=== PATIENT | female | born 1985 | race Asian ===

== ENCOUNTER 2017-09-17 07:44 | Inpatient (IN) | payer OTHER ==
[2017-09-17] MEDS ORDERED: Dinoprostone* 10 MG VAG.SUPP VAGINAL ONE (08:30)
[2017-09-17 21:23] LABS: ABS Basophils 0 10^3/ul (0-0.2); ABS Eosinophils 0.1 10^3/ul (0-0.6); ABS Lymphocytes 2.3 10^3/ul (1.0-4.8); ABS Monocytes 0.9 10^3/ul (0-0.8); ABS Nucleated RBC 0 10^3/ul; Eosinophil % 0.5 % (0-6); Hematocrit 40 % (35-47); Hemoglobin 13.8 g/dl (12.0-16.0); Lymphocyte % 17.1 % (25-47); Mean Corpuscular HGB Conc 34 g/dl (31-36); Mean Corpuscular Hemoglobin 32 pg (27-31); Mean Corpuscular Volume 93 fL (80-97); Mean Platelet Volume 9 um3 (7.4-10.4); Nucleated Red Blood Cells % 0; Platelet Count 181 10^3/ul (150-450); Red Blood Count 4.35 10^6/ul (4.0-5.4); Red Cell Distribution Width 13 % (10.5-15); White Blood Count 13.3 10^3/ul (3.5-10.8)
[2017-09-17] MEDS ORDERED: OBEPIDURAL* 250 ML EPIDURAL ONE (22:01)
[2017-09-17] MEDS ORDERED: Famotidine TAB* 20 MG PO PRN (22:43)
[2017-09-17] MEDS ORDERED: Phenylephrine IV* 40 MCG/ML 10 ML SYRINGE IV PUSH PRN ×2 (22:43)
[2017-09-17] MEDS ORDERED: Sodium Citrate/Citric Acid* 15 ML UDC PO PRN (22:43)
[2017-09-17] MEDS ORDERED: EPHEDrine (Pressors)* 50 MG/ML VIAL IV PUSH PRN ×2 (22:43)
[2017-09-17] MEDS ORDERED: OBEPIDURAL* 250 ML EPIDURAL SCH (23:00)
[2017-09-18] MEDS ORDERED: Oxytocin in LR* 20 UNITS/1,000 ML BAG IVPB ONE (05:16)
[2017-09-18] MEDS ORDERED: Acetaminophen TAB* 325 MG PO PRN (06:41)
[2017-09-18] MEDS ORDERED: Glycerin ADULT SUPP PR PRN (06:41)
[2017-09-18] MEDS ORDERED: Witch Hazel PAD* JAR TOPICAL PRN (06:41)
[2017-09-18] MEDS ORDERED: Dibucaine 1% 28.35 GM TUBE PR PRN (06:41)
[2017-09-18] MEDS ORDERED: Oxytocin in LR* 20 UNITS/1,000 ML BAG IVPB SCH (07:00)
[2017-09-18] MEDS: Docusate CAP* 100 MG PO SCH ×3 (14:40→19:52)
[2017-09-18] MEDS: Ibuprofen TAB* 600 MG PO PRN (19:33)
[2017-09-19 06:44] LABS: ABS Basophils 0 10^3/ul (0-0.2); ABS Eosinophils 0.1 10^3/ul (0-0.6); ABS Lymphocytes 2.3 10^3/ul (1.0-4.8); ABS Neutrophils 11.1 10^3/ul (1.5-7.7); ABS Nucleated RBC 0 10^3/ul; Eosinophil % 0.7 % (0-6); Hematocrit 33 % (35-47); Hemoglobin 11.6 g/dl (12.0-16.0); Lymphocyte % 15.8 % (25-47); Mean Corpuscular HGB Conc 35 g/dl (31-36); Mean Corpuscular Hemoglobin 32 pg (27-31); Mean Corpuscular Volume 93 fL (80-97); Mean Platelet Volume 9 um3 (7.4-10.4); Nucleated Red Blood Cells % 0; Platelet Count 154 10^3/ul (150-450); Red Blood Count 3.58 10^6/ul (4.0-5.4); Red Cell Distribution Width 13 % (10.5-15); White Blood Count 14.5 10^3/ul (3.5-10.8)
[2017-09-19] MEDS ORDERED: Ferrous Gluconate TAB* 324 MG TAB PO SCH (09:00)
[2017-09-19] MEDS: Docusate CAP* 100 MG PO SCH ×3 (09:21→20:05)
[2017-09-19] MEDS: Ibuprofen TAB* 600 MG PO PRN ×2 (09:21→20:05)
[2017-09-19] MEDS: Simethicone TAB* 80 MG TAB.CHEW PO SCH ×2 (12:51→12:52)
[2017-09-20 07:23] VITALS: BP 111/64
[2017-09-20] MEDS: Ibuprofen TAB* 600 MG PO PRN (08:59)
[2017-09-20] MEDS: Docusate CAP* 100 MG PO SCH (08:59)
== END 2017-09-20 15:10 | disposition home or self-care (01) | DRG 775 ==
LOC: MCHOBOUT 07:44 → MCHOB 08:25
PROVIDERS: ADMIT Obstetrics & Gynecology; ATTEND Obstetrics & Gynecology
PROC: 10E0XZZ Delivery of Products of Conception, External Approach (ICD-10-PCS; principal; 2017-09-18)
PROC: 0KQM0ZZ Repair Perineum Muscle, Open Approach (ICD-10-PCS; 2017-09-18)
PROC: 3E033VJ Introduction of Other Hormone into Peripheral Vein, Percutaneous Approach (ICD-10-PCS; 2017-09-18)
DX: O48.0 Post-term pregnancy (principal); O69.81X0 Labor and delivery complicated by cord around neck, without compression, not applicable or unspecified; O70.1 Second degree perineal laceration during delivery; O77.0 Labor and delivery complicated by meconium in amniotic fluid; Z37.0 Single live birth; Z3A.41 41 weeks gestation of pregnancy
CPT/HCPCS: 36415; 85025; 86850; 86900; 86901; A9270-GY

== ENCOUNTER 2019-10-12 14:31 | Inpatient (IN) | payer OTHER, MEDICAID ==
[2019-10-12] MEDS ORDERED: Lactated Ringers 1000 ML Bag* 1,000 ML IV ONE ×2 (16:22→23:32)
[2019-10-12] MEDS ORDERED: Buffered Lidocaine 1% SYRIN* 1 ML/SYRINGE INTRADERM ONE (16:22)
--- NOTE | 2019-10-12 16:47 | HP ---
General Information - Reason for Visit Term for elective induction of labor - General Information Maternal Age: 34 Grav: 3 Para: 1 SAB: 1 IEA: 0 Estimated Due Date: 10/16/19 Determined By: Early Ultrasound Maternal Blood Type and Rh: A Positive - Results this Serology/RPR Result: Non-Reactive Rubella Result: Immune HBsAg Result: Negative HIV Result: Negative GBS Culture Result: Negative Past Medical History Delivery History: See Records - 09/2017 Pertinent Past Medical History: See Records - No current problems Pertinent Past Surgical History: See Records Past Surgical History Comment: Appendectomy 05/2016 Pertinent Family History: Non-Contributory - Antepartal Records Antepartal Records: Reviewed, Uncomplicated Review of Systems Constitutional: Comfortable CV Complaint: No Respiratory: Shortness of Breath: No Gastrointestinal: No Nausea/Vomiting, Constipation Genitourinary: No Dysuria, No Bleeding, No Leaking Fluid Musculoskeletal: No Complaint Neurological: No Headache, No Visual Changes Movement: Normal Exam Allergies/Adverse Reactions: Allergies No Known Allergies Allergy (Verified 09/16/17 17:51) BP 115/62 T 98.6 RR18 HR 79 O2 99 - Measurements Height: 5 ft 7 in Weight: 152 lb Weight in lbs: 152.862339 Body Mass Index (BMI): 23.8 Pre- Weight: 121 lb Weight Gained This : 31 lbs and 0 ozs - Exam Breast: Breast Exam Deferred CVA: No CVA Tenderness Extremities: No Edema Heart: Normal Rhythm/Heart Sounds HEENT: No Significant Findings Lungs: Clear Bilaterally Rectal: Rectal Exam Deferred Reflexes: DTR 2+, - - no clonus Thyroid: - - WNL @ entry to care - Abdominal Exam Abdomen Exam: Non-Tender, Fundal Height Consistent with Dates - Ultrasound/Biophysical Profile Ultrasound Status: Not Done Targeted Exam Findings Estimated Weight: 7lb Cervical Exam: 2cm Effacement: 60% Station: -1 Presenting Part: Vertex Membrane Status: Intact Bleeding/Discharge: None EFM Findings - External Monitor Findings Baseline Heart Rate: 135 External Monitor Findings: Accelerations Present, No Pattern of Variable or Late Decelerations, Variability Moderate Contractions: Irregular, Mild, < 45 Seconds Contraction Frequency: q 10 min Assessment/Plan - Assessment IUP @ 39+3 weeks gestation for induction of labor. No evidence acidemia. Intact membranes. - Plan Plan Comment: PARQ discussion of Cook's catheter and low-dose pitocin for labor induction; patient in agreement. She will want epidural when uncomfortable. May consider amniotomy for augmentation at some point. Anticipate SVB. - Date/Time of Admission Date of Admission: 10/12/19 Time of Admission: 15:58
[2019-10-12] MEDS ORDERED: Oxytocin in LR* 20 UNITS/1,000 ML BAG IVPB SCH (17:00)
[2019-10-12] MEDS ORDERED: Lactated Ringers 1000 ML Bag* 1,000 ML IV SCH ×3 (17:00→23:45)
[2019-10-12 17:17] LABS: ABS Eosinophils 0.1 10^3/ul (0-0.6); ABS Lymphocytes 1.9 10^3/ul (1.0-4.8); ABS Monocytes 0.6 10^3/ul (0-0.8); ABS Neutrophils 6.6 10^3/ul (1.5-7.7); Eosinophil % 0.6 %; Hematocrit 41 % (35-47); Hemoglobin 14.3 g/dL (12.0-16.0); Lymphocyte % 20.4 %; Mean Corpuscular HGB Conc 35 g/dL (31-36); Mean Corpuscular Hemoglobin 33 pg (27-31); Mean Corpuscular Volume 94 fL (80-97); Mean Platelet Volume 9.7 fL (7.4-10.4); Nucleated Red Blood Cells % 0.1; Platelet Count 162 10^3/uL (150-450); Red Blood Count 4.39 10^6 /uL (3.70-4.87); Red Cell Distribution Width 13 % (10-15); White Blood Count 9.2 10^3/uL (3.5-10.8)
[2019-10-12 17:38] LABS: Urine Benzodiazepine Screen None Detected (None Detect); Urine Opiates Screen None Detected (None Detect)
--- NOTE | 2019-10-12 20:27 | PN ---
Progress Note - Progress Note Date of Service: 10/12/19 Note: S: Feeling ok, starting to notice that contractions are a bit stronger. O: VE deferred, Cook's catheter in place FHT 135, +accels, no decels, mod callum Pit @ 14 VSS, afebrile UCs q 2-4 min A: IUP @ 39+3 weeks for induction of labr Intact membrane No evidence acidemia P: Discussed continued pitocin titration. Can consider lowering if not coping but will likely desire epidural as soon as possible. Encouraged some more upright positions and movement, trying ball. Will follow up for balloon removal @ 12 hours or sooner if it comes out spontaneously.
[2019-10-12] MEDS ORDERED: OBEPIDURAL* 250 ML EPIDURAL ONE (22:56)
[2019-10-12] MEDS ORDERED: Lactated Ringers 1000 ML Bag* 500 ML IV PRN ×2 (23:32)
[2019-10-12] MEDS ORDERED: Phenylephrine 40 MCG/ML SYRINGE IV PUSH PRN ×2 (23:32)
[2019-10-12] MEDS ORDERED: Famotidine TAB* 20 MG PO PRN (23:32)
[2019-10-12] MEDS ORDERED: Sodium Citrate/Citric Acid* 15 ML UDC PO PRN (23:32)
[2019-10-12] MEDS ORDERED: OBEPIDURAL* 250 ML EPIDURAL SCH (23:45)
--- NOTE | 2019-10-13 01:45 | PN ---
Progress Note - Progress Note Date of Service: 10/13/19 Note: S: Patient comfortable with epidural O: VE deferred, Cook's in place FHT 130, Cat 1 Pit @ 12 UCs q 2-5 min, some coupling VSS, afebrile A: IUP @ 39+4 weeks gestation for induction Intact membranes No evidence acidemia P: Patient would like to sleep. Will plan Cooks removal and cervical exam at 12 hour sergio. May consider amniotomy later for augmentation but prefers to defer for now.
[2019-10-13] MEDS ORDERED: Dibucaine 1% 28.35 GM TUBE PR PRN (03:26)
[2019-10-13] MEDS ORDERED: Witch Hazel PAD* JAR TOPICAL PRN (03:26)
[2019-10-13] MEDS ORDERED: Glycerin ADULT SUPP PR PRN (03:26)
--- NOTE | 2019-10-13 03:35 | PROCNOTE ---
[facility]: Delivery Note - Delivery A Date of : 10/13/19 Time of : 03:01 [place] Sex: Female - "Bry" [place] Weight at : 6 lb 5 oz Score 1 Minute: 9 Score 5 Minutes: 9 Gestational Age in Weeks and Days at Delivery: 39 Weeks and 4 Days Delivery Method: Spontaneous Vaginal Labor: Induced Did Patient attempt ?: N/A, No Previous Amniotic Fluid: Clear Anesthesia/Analgesia: CEI for Labor Delivered By: Taiwo Alexandre - Nursery Level of Nursery: Regular/Bedside - Perineum Perineal Injury: 1st Degree Perineal Injury Comment: 1 stitch repair Perineal Repair: By Delivering Practioner - Events Delivery Events of Note: Pitocin During Labor - Additional Delivery Notes Additional Delivery Notes: Patient admitted for elective induction of labor. Length of active labor 4'4", pushed 12 min. Baby born @ 0301 OA to REG, shoulders following smoothly with maternal efforts. Baby to maternal abdomen with spontaneous cry, HR >110. Placenta delivered in Perez presentation with gentle cord traction @ 0304. Cord then doubly clamped and cut by FOB. Unable to collect cord bloods as cord empty. Fundus firmed with pitocin infusing and fundal massage. Single stitch perineal repair. Baby at breast to initiate .
[2019-10-13] MEDS ORDERED: Oxytocin in LR* 20 UNITS/1,000 ML BAG IVPB SCH (04:00)
[2019-10-13] MEDS: Ibuprofen TAB* 600 MG PO PRN ×3 (04:02→20:33)
[2019-10-13] MEDS ORDERED: Ammonia Inhalant* 1 EA AMP ONE (04:18)
[2019-10-13] MEDS ORDERED: Lidocaine 1% INJ* 10 MG/ML 30 ML SDV ONE (06:47)
[2019-10-13] MEDS: Docusate CAP* 100 MG PO SCH ×3 (07:53→20:33)
[2019-10-13] MEDS: Acetaminophen TAB* 325 MG PO PRN (08:10)
--- NOTE | 2019-10-13 10:21 | PTEDU ---
Patient Name: ANJELICA CARCAMO ANJELICA CARCAMO selected video: BBOB: Nurturing Your Gorgeous &Growing Baby by to view on 10/13/2019 at 10:20:00 AM [id number]
--- NOTE | 2019-10-13 11:00 | PTEDU ---
Patient Name: ANJELICA CARCAMO ANJELICA CARCAMO selected video: Follow Me Mum: [facility] to Successful to view on 10/13/2019 at 10:59:27 AM [id number]
[2019-10-14 06:31] LABS: ABS Eosinophils 0.1 10^3/ul (0-0.6); ABS Lymphocytes 2.2 10^3/ul (1.0-4.8); ABS Monocytes 0.8 10^3/ul (0-0.8); ABS Neutrophils 5.7 10^3/ul (1.5-7.7); Hematocrit 35 % (35-47); Hemoglobin 12.1 g/dL (12.0-16.0); Lymphocyte % 24.6 %; Mean Corpuscular HGB Conc 34 g/dL (31-36); Mean Corpuscular Hemoglobin 32 pg (27-31); Mean Corpuscular Volume 95 fL (80-97); Mean Platelet Volume 9.3 fL (7.4-10.4); Platelet Count 138 10^3/uL (150-450); Red Blood Count 3.73 10^6 /uL (3.70-4.87); Red Cell Distribution Width 13 % (10-15); White Blood Count 8.8 10^3/uL (3.5-10.8)
[2019-10-14] MEDS: Docusate CAP* 100 MG PO SCH (07:53)
[2019-10-14] MEDS: Acetaminophen TAB* 325 MG PO PRN (07:53)
[2019-10-14] MEDS: Ibuprofen TAB* 600 MG PO PRN (07:54)
[2019-10-14 08:04] VITALS: BP 106/71
[2019-10-14] MEDS ORDERED: Ferrous Gluconate TAB* 324 MG TAB PO SCH (09:00)
== END 2019-10-14 10:40 | disposition home or self-care (01) | DRG 807 ==
LOC: MCHOBOUT 14:31 → MCHOB 15:58
PROVIDERS: ADMIT Midwife; ATTEND Midwife
PROC: 0U7C7ZZ Dilation of Cervix, Via Natural or Artificial Opening (ICD-10-PCS; 2019-10-12)
PROC: 3E033VJ Introduction of Other Hormone into Peripheral Vein, Percutaneous Approach (ICD-10-PCS; 2019-10-12)
PROC: 10E0XZZ Delivery of Products of Conception, External Approach (ICD-10-PCS; principal; 2019-10-13)
PROC: 4A1HXCZ Monitoring of Products of Conception, Cardiac Rate, External Approach (ICD-10-PCS; 2019-10-13)
PROC: 0HQ9XZZ Repair Perineum Skin, External Approach (ICD-10-PCS; 2019-10-13)
DX: O70.0 First degree perineal laceration during delivery (principal); Z37.0 Single live birth; Z3A.39 39 weeks gestation of pregnancy
CPT/HCPCS: 36415; 80307; 85025; 86850; 86900; 86901; A9270-GY; G0480